=== PATIENT | female | born 1950 | race Caucasian/White ===

== ENCOUNTER 2023-01-07 05:40 | Inpatient (IN) | payer OTHER ==
[~2023-01-07] VITALS: Ht 162.6 cm; Wt 66.7 kg
[2023-01-07] MEDS ORDERED: CELECOXIB 200 MG CAPSULE PO ONE (06:15)
[2023-01-07] MEDS ORDERED: CEFAZOLIN SOD 2 GM in D5W 50 ML IV ONE (06:15)
[2023-01-07] MEDS ORDERED: oxyCODONE HCL 10 MG TAB.ER.12H PO ONE ×2 (06:15→07:25)
[2023-01-07] MEDS ORDERED: ACETAMINOPHEN 500 MG TABLET ONE (06:15)
[2023-01-07] MEDS ORDERED: ACETAMINOPHEN 500 MG TABLET PO ONE (06:15)
[2023-01-07] MEDS ORDERED: SCOPOLAMINE HYDROBROMIDE 1 MG PATCH .72 H (TRANSDERM-SCOP) TD ONE ×2 (06:15→06:18)
[2023-01-07] MEDS ORDERED: GABAPENTIN 300 MG CAPSULE PO ONE (06:15)
[2023-01-07] MEDS ORDERED: CELECOXIB 200 MG CAPSULE ONE (06:18)
[2023-01-07] MEDS ORDERED: GABAPENTIN 300 MG CAPSULE ONE (06:19)
[2023-01-07] MEDS ORDERED: CHOL200019 (07:00)
[2023-01-07] MEDS ORDERED: LEVO112T2 PO (07:00)
[2023-01-07] MEDS ORDERED: DOXY100C5 PO (07:00)
[2023-01-07] MEDS ORDERED: TURM1CAP PO (07:00)
[2023-01-07] MEDS ORDERED: BUPIVACAINE LIPOSOME/PF 266 MG/20 ML VIAL INFIL ONE (07:19)
[2023-01-07] MEDS ORDERED: WATER FOR IRRIGATION,STERILE 1,000 ML IRRIG.SOLN IR ONE (07:25)
[2023-01-07] MEDS ORDERED: DESFLURANE 15 MIN GAS INH ONE (07:25)
[2023-01-07] MEDS ORDERED: MIDAZOLAM HCL/PF 2 MG/2 ML SYRINGE ONE (07:25)
[2023-01-07] MEDS ORDERED: KETOROLAC TROMETHAMINE 30 MG VIAL ONE (07:25)
[2023-01-07] MEDS ORDERED: NS IRRIG SOLN 1000 ML IR ONE (07:25)
[2023-01-07] MEDS ORDERED: ONDANSETRON HCL 4 MG/2 ML VIAL ONE (07:25)
[2023-01-07] MEDS ORDERED: LIDOCAINE JECT 2% PF 100 MG/5ML SYRINGE ONE (07:25)
[2023-01-07] MEDS ORDERED: TRANEXAMIC ACID 1,000 MG/10 ML VIAL ONE (07:25)
[2023-01-07] MEDS ORDERED: BUPIVACAINE /PF 0.75% 10 ML VIAL INJ ONE (07:25)
[2023-01-07] MEDS ORDERED: NS 1000 ML IV.SOLN IV ONE (07:25)
[2023-01-07] MEDS ORDERED: PROPOFOL 200MG/ 20ML VIAL (DIPRIVAN) IV ONE (07:25)
[2023-01-07] MEDS ORDERED: BUPIVACAINE /PF 0.25% 30 ML VIAL INJ ONE (07:25)
[2023-01-07] MEDS ORDERED: DEXAMETHASONE SOD PHOSPHATE 4 MG/ML VIAL ONE (07:25)
[2023-01-07] MEDS ORDERED: ROCURONIUM BROMIDE 10 MG/ML (ZEMURON) ONE (07:25)
[2023-01-07] MEDS ORDERED: LR 1,000 ML IV.SOLN IV ONE (07:25)
[2023-01-07] MEDS ORDERED: MORPHINE SULFATE 10MG/10ML PF AMP ONE (07:25)
[2023-01-07] MEDS ORDERED: ACETAMINOPHEN I.V. 1000 MG 100 ML IV ONE (08:27)
[2023-01-07] MEDS ORDERED: NALOXONE HCL 0.4 MG/ML AMP (NARCAN) IVP PRN ×4 (08:45→10:15)
[2023-01-07] MEDS ORDERED: HYDROmorphone 1 MG/ML INJ. CARTRIDGE IVP PRN ×5 (08:45→11:00)
[2023-01-07] MEDS ORDERED: METOCLOPRAMIDE HCL 10 MG/2 ML VIAL IVP PRN ×2 (08:45→10:15)
[2023-01-07] MEDS ORDERED: DIPHENHYDRAMINE INJ 50 MG/ML VIAL IVP PRN (08:45)
[2023-01-07] MEDS ORDERED: ONDANSETRON HCL 4 MG/2 ML VIAL IVP PRN ×2 (08:45→11:45)
[2023-01-07] MEDS ORDERED: LR 1,000 ML IV SCH (08:45)
[2023-01-07] MEDS ORDERED: MEPERIDINE HCL/PF 25 MG/ML DISP.SYRIN IVP PRN (08:45)
[2023-01-07] MEDS ORDERED: MIDAZOLAM HCL 2 MG/2 ML VIAL (VERSED) IVP PRN (08:45)
[2023-01-07] MEDS ORDERED: LACTULOSE 20 GM/30 ML UDC PO PRN (10:15)
[2023-01-07] MEDS ORDERED: BISACODYL 10 MG/SUPPOSITORY RC PRN (10:15)
[2023-01-07] MEDS ORDERED: DIPHENHYDRAMINE HCL 25 MG CAPSULE PO PRN (10:15)
[2023-01-07] MEDS ORDERED: traMADol HCL HCL 50 MG TABLET (ULTRAM) PO PRN (11:00)
[2023-01-07] MEDS ORDERED: LORATADINE 10 MG TABLET PO PRN (11:00)
[2023-01-07] MEDS ORDERED: oxyCODONE HCL 5 MG TABLET PO PRN ×2 (11:00)
[2023-01-07 11:30] VITALS: BP_SYST 117; PULSE 78; RESP 20; TEMP 98.4; O2SAT 94
[2023-01-07] MEDS: ceFAZolin SODIUM 2 GM in D5W 50 ML IV SCH ×2 (11:39→23:11)
[2023-01-07 12:30] VITALS: BP_SYST 117; PULSE 78; RESP 20; TEMP 98.4
[2023-01-07] MEDS: ACETAMINOPHEN 500 MG TABLET PO SCH ×2 (15:50→22:07)
[2023-01-07] MEDS: KETOROLAC TROMETHAMINE 10 MG TABLET (TORADOL) PO SCH ×2 (15:51→22:06)
[2023-01-07 15:55] VITALS: O2SAT 94
[2023-01-07 20:00] VITALS: BP_SYST 98; PULSE 84; RESP 18; TEMP 97.4; O2SAT 94
[2023-01-07] MEDS: SENNOSIDES/DOCUSATE SODIUM 1 TAB TABLET(SENOKOT-S) PO SCH (22:05)
[2023-01-08] VITALS: BP_SYST 91; PULSE 74; RESP 16; TEMP 97.2; O2SAT 97
[2023-01-08 04:08] VITALS: O2SAT 94
[2023-01-08] MEDS: ceFAZolin SODIUM 2 GM in D5W 50 ML IV SCH (05:47)
[2023-01-08] MEDS: ACETAMINOPHEN 500 MG TABLET PO SCH (05:58)
[2023-01-08] MEDS: KETOROLAC TROMETHAMINE 10 MG TABLET (TORADOL) PO SCH (05:59)
[2023-01-08 07:11] LABS: ANION GAP 8 (5-15); CALCIUM 7.8 mg/dL (8.4-11.0); CARBON DIOXIDE 29 mmol/L (23-29); CHLORIDE 102 mmol/L (98-107); GLUCOSE 98 mg/dL (74-106); POTASSIUM 4.3 mmol/L (3.5-5.1); SODIUM SERUM 139 mmol/L (136-145); UREA NITROGEN, BLOOD 11 mg/dL (8-21)
[2023-01-08 07:16] LABS: BASOPHILS % (AUTO) 0.3 % (0.0-2.0); EOSINOPHILS % (AUTO) 0.5 % (0.0-4.0); HEMATOCRIT 33.2 % (36-48); HEMOGLOBIN 10.8 g/dL (12.0-16.0); LYMPHOCYTES # (AUTO) 2.1 K/uL (1.0-5.5); MEAN CORPUSCULAR HEMOGLOBIN 30 pg (27-31); MEAN CORPUSCULAR HGB CONC 33 % (32-36); MEAN CORPUSCULAR VOLUME 92 fL (79.0-98.0); MONOCYTES # (AUTO) 0.5 K/uL (0.0-1.0); NEUTROPHILS # (AUTO) 5.2 K/uL (1.8-7.7); NEUTROPHILS % (AUTO) 66.2 % (40.0-70.0); PLATELET COUNT (AUTO) 264 K/uL (130-430); WHITE BLOOD COUNT (AUTO) 7.9 K/uL (4.8-10.8)
[2023-01-08] MEDS ORDERED: LEVOTHYROXINE SODIUM 0.112 MG TABLET PO ONE (08:00)
[2023-01-08 08:30] VITALS: BP_SYST 119; PULSE 79; RESP 18; TEMP 96.9; O2SAT 99
[2023-01-08] MEDS ORDERED: ASPIRIN 81 MG TAB.CHEW PO SCH (09:00)
[2023-01-08] MEDS ORDERED: DECADRON 4 MG TABLET PO SCH (09:00)
[2023-01-08] MEDS: SENNOSIDES/DOCUSATE SODIUM 1 TAB TABLET(SENOKOT-S) PO SCH (09:27)
[2023-01-08 10:38] VITALS: O2SAT 95
[2023-01-08] MEDS ORDERED: CELECOXIB 200 MG CAPSULE PO SCH (11:00)
[2023-01-08 12:59] VITALS: BP_SYST 132; PULSE 76; RESP 18; TEMP 98.1; O2SAT 98
[2023-01-09] MEDS ORDERED: LEVOTHYROXINE SODIUM 0.112 MG TABLET PO SCH (07:00)
== END 2023-01-08 13:20 | disposition home health service (06) | DRG 470 ==
LOC: SMU 05:40
PROVIDERS: ADMIT Student in an Organized Health Care Education/Training Program; ATTEND Student in an Organized Health Care Education/Training Program
PROC: 0SRB0JA Replacement of Left Hip Joint with Synthetic Substitute, Uncemented, Open Approach (ICD-10-PCS; principal; 2023-01-07 07:30)
DX: M16.12 Unilateral primary osteoarthritis, left hip (principal)
CPT/HCPCS: 36415; 72170-TC; 76001; 80048; 85025; 87081; 88304; 88311; 96379; 97110-GP; 97116-GP; 97163-GP; 97530-GP; A4649; C1713; C1776; C9290; J0131; J0690; J1100; J1885; J2274; J2405; J2704; J3465; J3490; J7030; J7060; J7120; J8540